=== PATIENT | female | born 1975 | race Caucasian/White ===

== ENCOUNTER 2019-08-04 19:00 | Emergency (ER) | payer OTHER ==
[~2019-08-04] VITALS: Ht 165.1 cm; Wt 111.1 kg
[~2019-08-04 19:00] MED LIST: BACTRIM DS TAB1 EACH PO; DESYREL; ORTHO-NOVUM1 EAC2; PERCOCET 5-3251 EACH PO
[2019-08-04] MEDS ORDERED: DORYX MPC120 MG PO (19:20)
[2019-08-04 20:49] LABS: INFLUENZA A ANTIGEN Negative (Negative)
[2019-08-04 21:07] LABS: ABSOLUTE EOSINOPHILS 0.1 thou/uL (0.0-0.7); ABSOLUTE LYMPHOCYTES 0.8 thou/uL (0.8-5.3); ABSOLUTE MONOCYTES 0.8 thou/uL (0.0-1.2); ABSOLUTE NEUTROPHILS 6.3 thou/uL (1.6-8.1); BASOPHILS 0.5 %; EOSINOPHILS 0.9 %; HEMATOCRIT 39.2 % (37.0-47.0); HEMOGLOBIN 13.5 gm/dL (12.0-15.0); LYMPHOCYTES 9.7 %; MCH 31.8 pg (26.0-34.0); MCHC 34.5 g/dL (28.0-37.0); MCV 92.1 fL (80.0-100.0); MONOCYTES 9.6 %; MPV 7.8 fl. (7.2-11.1); NUCLEATED RBCS 0 /100WBC; PLATELET COUNT* 226 thou/uL (150-400); POLYS 79.3 %; RBC 4.25 mil/uL (4.20-5.00); RDW-CV 13.1 % (10.5-14.5)
[2019-08-04 21:13] LABS: POTASSIUM 3.8 mmol/L (3.5-5.1)
[2019-08-04] MEDS ORDERED: PROMETH-CODEIN 65 ML PO ×2 (21:14→21:45)
[2019-08-04] MEDS ORDERED: PROAIR HFA8.5 GM INH (21:14)
[2019-08-04 21:17] LABS: ALBUMIN 3.2 g/dL (3.4-5.0); TOTAL BILIRUBIN 0.4 mg/dL (<0.1-1.0); TOTAL PROTEIN 6.8 g/dL (6.4-8.2)
[2019-08-04] MEDS ORDERED: TAMIFLU75 MG PO (22:52)
[2019-08-05 00:06] VITALS: BP 113/66
--- NOTE | 2019-08-05 10:12 | EKG ---
[place] [address] ELECTROCARDIOGRAM REPORT Name: NEREYDA STALEY Room: [facility]#: [id number] Admission: 08/04/19 Attend Phys: Discharge: 08/05/19 Date of : 75 Date of Service: 08/04/191912 Report #: [id number] THIS REPORT FOR: //name// [facility] ED Test Date: 2019-08-04 Test Time: 19:13:02 Pat Name: NEREYDA STALEY Department: Room: Gender: F [employer]: : 1975 Requested By: Sherley Anderson Order Number: [id number] MD: [place] Palacio Measurements Intervals [place] Rate: 117 P: 7 MS: 158 QRS: 64 QRSD: 76 T: -22 QT: 308 QTc: 430 Interpretive Statements Sinus tachycardia septal q waves Borderline T abnormalities, inferior leads Baseline wander in lead(s) III,aVL,aVF,V1 No previous ECG available for comparison Electronically Signed On 08-05-2019 10:11:21 CHUCK BONER by [place] Palacio [email or web address] <ELECTRONICALLY SIGNED> By: Berlin Palacio MD, [facility] 08/05/19 1011 12 12 Berlin Palacio MD, [facility] /EPI
== END 2019-08-05 00:06 | disposition home or self-care (01) ==
LOC: M.ERS 19:00
PROVIDERS: Physician Assistant
DX: J10.1 Influenza due to other identified influenza virus with other respiratory manifestations (principal); Z98.890 Other specified postprocedural states

== ENCOUNTER → 2019-10-31 | Outpatient (CLI) | payer OTHER ==
[~2019-10-31] MED LIST changes: +DORYX MPC120 MG PO; +PROAIR HFA8.5 GM INH; +PROMETH-CODEIN 65 ML PO; +TAMIFLU75 MG PO
== END ==
LOC: M.LAB 16:47
DX: Z11.59 Encounter for screening for other viral diseases (principal)